=== PATIENT | male | born 1965 | race Asian ===

== ENCOUNTER 2017-10-22 18:53 | Emergency (ER) | payer OTHER ==
[~2017-10-22] VITALS: Ht 170.2 cm; Wt 74.4 kg
[2017-10-22 19:21] VITALS: Ht 170.2 cm; Wt 74.4 kg
[2017-10-22 23:17] VITALS: BP 107/56
== END 2017-10-22 23:17 | disposition home or self-care (01) ==
LOC: ED 18:53
DX: J02.9 Acute pharyngitis, unspecified (principal)